=== PATIENT | female | born 1945 | race American Indian/Alaskan Native ===

== ENCOUNTER 2018-04-07 14:49 | Outpatient (CLI) | payer MEDICARE, OTHER | END 2018-04-07 14:50 | disposition home or self-care (01) | LOC: VAS 14:49 | PROVIDERS: ATTEND Internal Medicine | DX: I83.812 Varicose veins of left lower extremity with pain (principal) | CPT/HCPCS: 93970 ==

== ENCOUNTER 2019-02-08 10:14 | Outpatient (CLI) | payer MEDICARE, OTHER ==
--- NOTE | 2019-02-08 14:03 | Ultrasound Report ---
ULTRASOUND PELVIC COMPLETE ULTRASOUND TRANSVAGINAL HISTORY: Pelvic pain. COMPARISON: 04/02/15. TECHNIQUE: Transabdominal and transvaginal ultrasound with color doppler interrogation. FINDINGS: The uterus and ovaries are not identified on transabdominal or transvaginal imaging consistent with history of hysterectomy. No pelvic fluid or mass is identified. Normal color doppler interrogation. IMPRESSION: No abnormality identified. No change since 2014.
== END 2019-02-08 10:15 | disposition home or self-care (01) ==
LOC: US 10:14
PROVIDERS: ATTEND Obstetrics & Gynecology
DX: R10.2 Pelvic and perineal pain (principal)
CPT/HCPCS: 76830; 76856